=== PATIENT | male | born 1955 | race Caucasian/White ===

== ENCOUNTER 2018-02-20 20:24 | Emergency (ER) | payer MEDICAID ==
[2018-02-20 20:56] VITALS: BP 142/91
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
== END 2018-02-20 21:32 | disposition home or self-care (01) ==
LOC: JP.ED 20:24
DX: K62.89 Other specified diseases of anus and rectum (principal); F17.210 Nicotine dependence, cigarettes, uncomplicated
CPT/HCPCS: 99283

== ENCOUNTER 2019-09-18 10:03 | Emergency (ER) | payer MEDICAID, MEDICARE ==
[2019-09-18 10:10] VITALS: BP 155/92; PULSE 104
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
[2019-09-18] MEDS ORDERED: methylPREDNISolone Sodium Succinate 125 MG/2 ML SDV IVPUSH ONE (10:59)
[2019-09-18] MEDS ORDERED: Sodium Chloride 0.9% 10 ML Syringe FLUSH PRN (10:59)
[2019-09-18] MEDS ORDERED: Albuterol 0.083% 2.5 MG/3 ML Neb Soln NEB ONE (11:00)
[2019-09-18] MEDS ORDERED: Sodium Chloride 0.9% 1,000 ML IV SCH (11:15)
--- NOTE | 2019-09-18 11:53 | CRLCR ---
INDICATION: Shortness of breath. TECHNIQUE: AP portable chest. COMPARISON: None. FINDINGS: Hyperinflation versus a deep inspiratory effort. No pneumothorax. No focal or diffuse infiltrate. Overall heart size is normal. The included skeleton is within normal limits. IMPRESSION: No acute cardiopulmonary process identified. Dictated by Jian Wolf MD @ Sep 18 2019 11:20AM Signed by Dr. Jian Wolf @ Sep 18 2019 11:51AM
[2019-09-18] MEDS ORDERED: cefTRIAXone 1 GM in Sodium Chloride 0.9% 50 ML IV ONE (12:22)
== END 2019-09-18 13:03 | disposition home or self-care (01) ==
LOC: JP.ED 10:03
DX: J44.1 Chronic obstructive pulmonary disease with (acute) exacerbation (principal); F17.210 Nicotine dependence, cigarettes, uncomplicated
CPT/HCPCS: 36415; 36600; 71045; 80053; 81001; 82803; 83880; 85025; 87804; 87804-59; 94640; 96361; 96365; 96375; 99284; 99285-25; J0696; J2930; J7030; J7050

== ENCOUNTER 2024-05-12 06:50 | Emergency (ER) | payer MEDICARE, MEDICAID ==
[2024-05-12 07:39] LABS: BASOPHILS PERCENT AUTO 0.6 % (0.1-1.3); EOSINOPHILS PERCENT AUTO 2.9 % (0.0-5.4); HEMATOCRIT 38.1 % (38.4-49.7); HEMOGLOBIN 13.9 g/dL (12.9-16.9); IMMATURE GRAN PERCENT AUTO 0.3 % (0.0-0.7); LYMPHOCYTES ABSOLUTE AUTO 1.58 K/uL (0.8-3.3); LYMPHOCYTES PERCENT AUTO 45.3 % (11.4-47.7); MEAN CORPUSCULAR HEMOGLOBIN 34.7 pg (31.6-35.5); MEAN CORPUSCULAR HGB CONC 36.5 g/dL (31.6-35.5); MONOCYTES ABSOLUTE AUTO 0.34 K/uL (0.20-0.90); MONOCYTES PERCENT AUTO 9.7 % (3.3-12.6); NEUTROPHILS ABSOLUTE AUTO 1.44 K/uL (1.0-7.6); NEUTROPHILS PERCENT AUTO 41.2 % (40.0-78.1); PLATELET COUNT,PLT 145 K/uL (130-375); RED BLOOD CELL COUNT 4.01 M/uL (4.14-5.76); WHITE BLOOD CELL COUNT,WBC 3.5 K/uL (3.2-11.0)
[2024-05-12] MEDS: Pantoprazole 80 MG in Sodium Chloride 0.9% 100 ML IV ONE (07:42)
[2024-05-12 07:44] LABS: BASOPHILS ABSOLUTE AUTO 0.02 K/uL (0.00-0.10); IMMATURE GRAN ABSOLUTE AUTO 0.01 K/uL (0.00-0.23)
[2024-05-12] MEDS: Sodium Chloride 0.9% 1,000 ML IV SCH (07:47)
[2024-05-12] MEDS: Pantoprazole 40 MG Vial IVPUSH ONE (07:48)
[2024-05-12] MEDS: Ketorolac 15 MG/ML SDV IVPUSH ONE (07:48)
[2024-05-12] MEDS ORDERED: Sodium Chloride 0.9% 10 ML Syringe FLUSH PRN (07:52)
[2024-05-12 08:03] LABS: A/G RATIO 1.1 (1.2-2.2); ALANINE AMINOTRANSFERASE,ALT 26 U/L (12-78); ALBUMIN 3.4 g/dL (3.4-5.0); ALKALINE PHOSPHATASE 68 U/L (46-116); ASPARTATE AMNIOTRANSFERASE,AST 26 U/L (15-37); BILIRUBIN TOTAL 0.3 mg/dL (0.2-1.0); BLOOD UREA NITROGEN,BUN 11 mg/dL (7-18); CALCIUM 8.8 mg/dL (8.5-10.1); CARBON DIOXIDE,CO2 26 mmol/L (21-32); CHLORIDE,CL 102 mmol/L (100-108); CREATININE 0.9 mg/dL (0.8-1.3); ESTIMATED GFR 92 mL/min (>60); GLUCOSE RANDOM 136 mg/dL (74-106); POTASSIUM,K 3.4 mmol/L (3.6-5.2); PROTEIN TOTAL,TP 6.4 g/dL (6.4-8.2); SODIUM,NA 139 mmol/L (140-148); TROPONIN I HIGH SENSITIVITY 7.3 pg/mL (<=60.3)
[2024-05-12 08:04] LABS: ANION GAP 14.4 mmol/L (5.0-14.0)
[2024-05-12] MEDS: Iopamidol 612 MG/ML 100 ML Bottle IV SCH (08:57)
[2024-05-12] MEDS: Sodium Chloride 0.9% 100 ML IV SCH (08:57)
[2024-05-12 09:53] LABS: APPEARANCE,URINE CLEAR (CLEAR); BILIRUBIN,URINE NEGATIVE (NEGATIVE); COLOR,URINE YELLOW (YELLOW); GLUCOSE,URINE NEGATIVE (NEGATIVE); KETONES,URINE NEGATIVE (NEGATIVE); LEUKOCYTE ESTERASE,URINE NEGATIVE (NEGATIVE); NITRITE,URINE NEGATIVE (NEGATIVE); OCCULT BLOOD,URINE NEGATIVE (NEGATIVE); PH,URINE 5.5 (5.0-8.0); PROTEIN,URINE NEGATIVE (NEGATIVE); UROBILINOGEN,URINE 0.2 EU/dL (0.2-1.0)
[2024-05-12 10:11] LABS: AMORPHOUS SEDIMENT,URINE NOT SEEN; BACTERIA,URINE NOT SEEN; EPITHELIAL CELLS,URINE NOT SEEN; MUCUS,URINE NOT SEEN; RBC,URINE NOT SEEN (0-5); WBC,URINE 0-5 (0-5)
[2024-05-12 11:25] VITALS: BP 103/62; PULSE 76
== END 2024-05-12 11:03 | disposition home or self-care (01) ==
LOC: JP.ED 06:50
DX: R10.13 Epigastric pain (principal); F17.210 Nicotine dependence, cigarettes, uncomplicated; Z79.899 Other long term (current) drug therapy
CPT/HCPCS: 36415; 71260; 74177; 80053; 81001; 83690; 84484; 85025; 96361; 96374; 96375; 99284; J1885; J2470; J3490; J7030; Q9967

== ENCOUNTER 2024-06-18 06:44 | Day surgery (SDC) | payer MEDICARE, MEDICAID ==
[2024-06-18] MEDS ORDERED: fentaNYL 100 MCG/2 ML SDV ONE (07:12)
[2024-06-18] MEDS ORDERED: Propofol 200 MG/20 ML SDV ONE (07:12)
[2024-06-18] MEDS: Lactated Ringers 1,000 ML IV SCH (07:50)
[2024-06-18 10:15] VITALS: BP 124/78; PULSE 61
== END 2024-06-18 10:26 | disposition home or self-care (01) ==
LOC: JP.SDS 06:44
PROVIDERS: ATTEND Family Medicine
DX: R63.4 Abnormal weight loss (principal); Z86.0100 Personal history of colon polyps, unspecified
CPT/HCPCS: 45378; J2704; J3010; J7120